=== PATIENT | female | born 1985 | race African-American/Black ===

== ENCOUNTER 2020-06-14 15:26 | Emergency (ER) | payer OTHER ==
[~2020-06-14] VITALS: Ht 157.5 cm; Wt 81.6 kg
--- NOTE | 2020-06-14 16:00 | NUR ---
at bedside for assessment
[2020-06-14] MEDS ORDERED: TRAM50TA2 PO (16:09)
[2020-06-14] MEDS ORDERED: ACYC800T PO (16:09)
[2020-06-14] MEDS ORDERED: TRAMADOL HCL 50 MG TABLET PO ONE (16:15)
[2020-06-14 16:17] LABS: *BILIRUBIN,URIN 1+ (NEGATIVE); *BLOOD, URINE NEGATIVE (NEGATIVE); *COLOR,URINE YELLOW (YELLOW); *KETONES,URINE 2+ (NEGATIVE); *UROBILINOGEN,URINE 0.2 E.U./dl (NORMAL); LEUKOCYTE ESTERASE ,URINE NEGATIVE (NEGATIVE); NITRITE, URINE NEGATIVE (NEGATIVE); PH,URINE 6.5 (5.0-8.0); UGLUCOSE NEGATIVE (NEGATIVE)
[2020-06-14 16:19] LABS: *CLARITY,URINE CLEAR (CLEAR)
[2020-06-14] MEDS ORDERED: TRAMADOL HCL 50 MG TABLET ONE (16:19)
[2020-06-14 16:20] LABS: *URINE HCG, QUAL NEGATIVE (NEGATIVE)
--- NOTE | 2020-06-14 16:39 | NUR ---
Patient discharged to home in stable condition. Written and verbal after care instructions given. Patient verbalizes understanding of instructions. Stressed follow up or return to ER for worsening s/s.
== END 2020-06-14 16:43 | disposition home or self-care (01) ==
LOC: ER 15:26
DX: R10.31 Right lower quadrant pain (principal); B02.9 Zoster without complications; E28.2 Polycystic ovarian syndrome
CPT/HCPCS: 84703; A4663